=== PATIENT | female | born 1980 | race Hispanic/Latino ===

== ENCOUNTER 2022-05-20 09:24 | Emergency (ER) | payer OTHER ==
[~2022-05-20] VITALS: Ht 144.8 cm; Wt 43.1 kg
[2022-05-20] MEDS ORDERED: ACETAMINOPHEN 500 MG TABLET ONE (09:37)
[2022-05-20] MEDS ORDERED: ACETAMINOPHEN 500 MG TABLET PO ONE (10:00)
[2022-05-20] MEDS ORDERED: ASPIRIN 81MG CHEW TAB PO ONE (10:00)
[2022-05-20 10:07] LABS: APPEARANCE,URINE CLEAR (CLEAR); BILIRUBIN,URINE NEGATIVE (NEGATIVE); COLOR,URINE YELLOW (YELLOW); GLUCOSE, URINE (UA) 100 mg/dL (NEGATIVE); KETONES,URINE NEGATIVE (NEGATIVE); LEUKOCYTE ESTERASE ,URINE NEGATIVE (NEGATIVE); NITRATE,URINE NEGATIVE (NEGATIVE); OCCULT BLOOD,URINE SMALL (NEGATIVE); PROTEIN,URINE NEGATIVE (NEGATIVE); UROBILINOGEN,URINE 0.2 mg/dL (0.2-1.0)
[2022-05-20 10:08] LABS: BASOPHILS % (AUTO) 0.3 % (0.0-5.0); EOSINOPHILS % (AUTO) 0.1 % (0.0-8.0); LYMPHOCYTES % (AUTO) 6.7 % (21.0-51.0); MEAN CORPUSCULAR HEMOGLOBIN 30.9 pg (27.0-33.0); MEAN CORPUSCULAR HGB CONC 34.1 g/dL (32.0-36.0); MEAN CORPUSCULAR VOLUME 90.7 fL (79-99); MONOCYTES % (AUTO) 13.8 % (3.0-13.0); NEUTROPHILS % (AUTO) 78.5 % (40.0-77.0); PLATELET COUNT (AUTO) 212 K/uL (130-400); RED BLOOD CELL COUNT(AUTO) 3.75 MIL/uL (4.00-5.50); RED CELL DISTRIBUTION WIDTH 13.3 % (11.0-15.5); WHITE BLOOD COUNT (AUTO) 6.8 K/uL (4.8-10.8)
[2022-05-20 10:16] LABS: HCG,QUALITATIVE URINE NEGATIVE (NEGATIVE)
[2022-05-20 10:29] LABS: BACTERIA,URINE Rare /HPF (None Seen); RBC,URINE None Seen /HPF (0-1); SQUAMOUS EPITHELIAL CELL,UR Rare /HPF (0-2); WBC,URINE None Seen /HPF (0-1)
[2022-05-20] MEDS ORDERED: 0.9%NACL 1000ML 1,000 ML IV SCH (10:30)
[2022-05-20 10:32] LABS: ALBUMIN 3.9 g/dL (3.5-5.0); THYROID STIMULATING HORMONE 0.11 uIU/mL (0.36-3.74)
[2022-05-20] MEDS ORDERED: POTASSIUM CHLORIDE 10% ELIXIR 20 MEQ/15 ML UDCUP PO ONE (11:00)
[2022-05-20 11:09] VITALS: BP 101/56
== END 2022-05-20 13:00 | disposition home or self-care (01) ==
LOC: EDH 09:24
DX: U07.1 COVID-19 (principal)
CPT/HCPCS: 99285; 96360; 71045; 87635; 84443; 84484; 80053; 85025; 87040 ×2; 87804 ×2; 84439; 83605; 84481; 81001; 81025; 36415; 93005; C9803; J7030